=== PATIENT | female | born 1945 | race Caucasian/White ===

== ENCOUNTER 2024-07-22 13:52 | Outpatient (REF) | payer MEDICARE, SELFPAY ==
--- NOTE | ~2024-07-22 | XR_ITS ---
EXAMINATION: XR CHEST CLINICAL INFORMATION: J06.9 - Acute upper respiratory infection, unspecified COMPARISON: None available. TECHNIQUE: 2 views of the chest were obtained. FINDINGS: Meniscal shaped opacities in the lower hemithoraces. Decreased AP diameter of the thorax and hyperinflated lungs. Pulmonary reticular pattern. Patchy opacities in the right lung. Cardiomediastinal silhouette mildly prominent. Calcified plaque thoracic aortic arch. Multilevel thoracic spondylosis. Osteopenia versus osteoporosis. Mild S-shaped curvature of the thoracic spine. 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 Superimposed acute small airway inflammatory process cannot be excluded. Follow-up until resolution. Electronically signed by: Damon Truong MD 07/22/2024 02:44 PM EDT
--- OUTSIDE RECORDS SUMMARY | 2024-07-22 14:46 | XMS_ITS | Encounter Summary ---
Author Organization [facility] Address [address] [place] [address] Care Team Providers Care Improvement Leader Name Role Phone Marcus Rodriguez MD Primary Care Provider [phone] Reason for Visit * Reason Comments URI Sx x 4 days Encounter Details Date Type Department Care Team (Late st Contact Info) Description 07/19/2024 1:30 PM EDT Office Visit Adult Medicine [address] [phone] Vilma Arreaga PA [address] [place] [phone] Viral upper respiratory tract infection (Primary Dx) [...] Care Everywhere. * URI (Upper Respiratory Infection) (Turkish) documented in this encounter Ordered Prescriptions Prescription [...] Noted Chronic diastolic CHF (congestive heart failure) ([facility] [place]24, [facility] V28) 05/04/2024 Coronary artery disease involving nisqually coronary artery of nisqually heart without angina pectoris 05/04/2024 Acquired hypothyroidism 05/04/2024 Complex partial seizures ([facility] V24, [facility] V28) 05/04/2024 Bilateral malignant neoplasm of breast in female ([facility]24, [facility] V28) 05/04/2024 Past Surgical History: Procedure Laterality [...] for cough medication and decongestant sent to [facility]. - Suggested allergy medication to dry [...] problems arise. Orders Placed This Encounter Procedures [id number], RSV, Influenza A and B qualitative RT-PCR [...] 11:30 AM EDT Office Visit Adult Medicine [address] [address] Marcus Rodriguez MD [address] [place] [phone] documented as of this encounter Procedures Procedure Name Priority Date/Time Associated Diagnosis Comments [id number], RSV, FLU A AND B QUALITATIVE RT-PCR, LOCAL REFERENCE LAB Routine 07/19/2024 1:40 PM EDT Viral upper respiratory tract infection documented in this encounter Results * [id number], RSV, Influenza A and B qualitative RT-PCR (07/19/2024 1:40 PM EDT) SARS COV-2 Not Detected Not Detected LAB MOLECULAR DIAGNOSTICS METHOD 07/19/2024 11:28 PM EDT [facility] Comment: Disclaimer: The manner in which this information is used to guide patient care is the responsibility of the healthcare provider. Testing was performed using the [employer] m SARS-CoV-2 test. This test has [...] for Healthcare Providers can be found at: https://www.fda.gov/media/130841/download Fact sheet for Patients can be found at: https://www.fda.gov/media/854895/download Influenza A PCR Not Detected Not Detected LAB MOLECULAR DIAGNOSTICS METHOD 07/19/2024 11:28 PM EDT [facility] Influenza B PCR Not Detected Not Detected LAB MOLECULAR DIAGNOSTICS METHOD 07/19/2024 11:28 PM EDT [facility] RSV PCR Not Detected Not Detected LAB MOLECULAR DIAGNOSTICS METHOD 07/19/2024 11:28 PM EDT [facility] Swab Nasopharyngeal structure / Unknown Non-blood Collection / Unknown 07/19/2024 1:40 PM EDT 07/19/2024 1:40 PM EDT Vilma MATHEW LAB MICROBIOLOGY - GENER AL ORDERABLES Final Result [facility] [address] [place] [address], documented in this encounter Visit Diagnoses Diagnosis Viral upper respiratory tract infection- Primary Acute upper respiratory infections of unspecified site documented in this encounter Additional Health Concerns Infection Onset Date Last Indicated Resolved Time Respiratory Rule-Out 07/19/2024 07/19/2024 025 11:28 PM EDT COVID-19 Rule-Out 07/19/2024 07/19/2024 07/19/2024 11:28 PM EDT documented as of this encounter Care Teams Improvement Leader Relationship Specialty Start Date End Date Marcus Rodriguez MD [address] [place] [phone] PCP - General 11/02/23 documented as of this encounter
--- OUTSIDE RECORDS SUMMARY | 2024-07-22 14:46 | XMS_ITS | Encounter Summary ---
Author Organization [facility] Address [address] [place] [address] Care Team Providers Care Database Specialist Name Role Phone Marcus Rodriguez MD Primary Care Provider [phone] Reason for Visit * Reason Onset Date Comments Cough 07/22/2024 call back 07/22/2024 Encounter Details Date Type Department Care Team (Late st Contact Info) Description 07/22/2024 Telephone Adult Medicine [facility] [address] [place] [phone] Marcus Rodriguez MD [address] [place] [address] Cough; call back Social History Tobacco Use [...] traveled recently to another state outside of [place], [place], [place], [place], [place], [place], [place]? no o If yes, did you quarantine [...] of accident/Injury: No If yes, gather 3rd constitution party insurance information Third Libertarian Information: not applicable PCP: Marcus Rodriguez MD Payor: MEDICARE / Plan: MEDICARE PART A & B / Product Type: Medicare / documented in this encounter Plan of Treatment Upcoming Encounters Date Type Department Care Team (Late st Contact Info) Description 10/31/2024 11:30 AM EDT Office Visit Adult Medicine [address] [phone] Marcus Rodriguez MD [address] [place] [phone] documented as of this encounter Visit Diagnoses Not on filedocumented in this encounter Care Teams Database Specialist Relationship Specialty Start Date End Date Marcus Rodriguez MD [address] [place] [phone] PCP - General 11/02/23 documented as of this encounter
--- OUTSIDE RECORDS SUMMARY | 2024-07-22 14:46 | XMS_ITS | Clinical Summary ---
Author Organization [facility] [address] [place] [address] Address [address] [place] [address] Phone Care Team Providers Care Warping Machine Operator Name Role Phone Marcus Rodriguez MD Primary Care Provider [phone] Allergies Active Allergy Reactions Criticality Noted Date [...] Chronic diastolic CHF (conge stive heart failure) ([facility] V24, [facility] V28) 05/04/2024 Coronary artery disease invo lving [place] coronary artery of [place] heart without angina pectoris 05/04/2024 Acquired hypothyroidism 05/04/2024 Complex partial seizures ([facility] V24, [facility] V 28) 05/04/2024 Bilateral malignant neoplasm of breast in female ([facility] V24, [facility] V28) 05/04/2024 Encounters Date Type Department Care Team Description 07/22/2024 Telephone Adult [address] [phone] Marcus Rodriguez MD Cough; call back 07/19/2024 1:30 PM EDT Office Visit [address] [phone] Vilma Arreaga PA Viral upper respiratory tract infection (Primary Dx) 07/19/2024 Telephone Adult Medicine [address] [phone] Cathryn Loco RN 05/12/2024 Telephone Adult [address] [phone] Marcus Rodriguez MD prior auth for meds 05/05/2024 1:45 PM EST Office Visit Adult Medicine [address] [phone] Marcus Rodriguez MD Coronary artery disease involving [place] coronary artery of [place] heart without angina pectoris (Primary Dx); Chronic diastolic CHF (congestive heart failure) ([facility] V24, [facility] V28); Acquired hypothyroidism; Complex partial seizures ([facility] V24, [facility] V28); Bilateral malignant neoplasm of breast in female, unspecified estrogen receptor status, unspecified site of breast ([facility] V24, [facility] V28); Gastroesophageal reflux disease without esophagitis; Prediabetes; Vitamin D deficiency disease; Anxiety disorder, unspecified type; Encounter for osteoporosis screening in asymptomatic postmenopausal patient; Malnutrition, unspecified type ([facility] V24) from Last 3 Months Immunizations [...] nodule DX:Thyroid nodul e Complex partial seizure ([facility] V24, [facility] V28) DX:Complex partial seizure ( HCC) MS (multiple sclerosis) ([facility] V24, [facility] V28) DX:MS (multiple sclerosis) ( [facility]) Chronic fatigue DX:Chronic fatig ue CHF (congestive heart failur e) ([facility] V24, [facility] V28) DX:CHF (congestive heart nolan lure) ([facility]) Breast cancer ([facility] V24, [facility] V28) DX:Breast cancer (HCC) Family History [...] 11:30 AM EDT Office Visit Adult Medicine [address] [phone] Marcus Rodriguez MD [address] [place] [address] Health Maintenance Due Date Last Done Comments [...] Procedure Name Priority Date/Time Associated Diagnosis Comments [id number], RSV, FLU A AND B QUALITATIVE RT-PCR, LOCAL REFERENCE LAB Routine 07/19/2024 1:40 PM EDT Viral upper respiratory tract infection from Last 3 Months Results * [id number], RSV, Influenza A and B qualitative RT-PCR (07/19/2024 1:40 PM EDT) SARS COV-2 Not Detected Not Detected LAB MOLECULAR DIAGNOSTICS METHOD 07/19/2024 11:28 PM EDT [facility] Comment: Disclaimer: The manner in which this information is used to guide patient care is the responsibility of the healthcare provider. Testing was performed using the [employer] Alinity m SARS-CoV-2 test. This test has [...] for Healthcare Providers can be found at: https://www.fda.gov/media/975848/download Fact sheet for Patients can be found at: https://www.fda.gov/media/358251/download Influenza A PCR Not Detected Not Detected LAB MOLECULAR DIAGNOSTICS METHOD 07/19/2024 11:28 PM EDT [facility] Influenza B PCR Not Detected Not Detected LAB MOLECULAR DIAGNOSTICS METHOD 07/19/2024 11:28 PM EDT [facility] RSV PCR Not Detected Not Detected LAB MOLECULAR DIAGNOSTICS METHOD 07/19/2024 11:28 PM [facility] Swab Nasopharyngeal structure / Unknown Non-blood Collection / Unknown 07/19/2024 1:40 PM EDT 07/19/2024 1:40 PM EDT us Vilma Bondsng Babatunde Arreaga PA LAB MICROBIOLOGY - GENER AL ORDERABLES Final Result [facility] [address] [place] [address], [place] [phone] from Last [address] [id number] MEDICARE COMMERCIAL GENERIC Care Teams Warping Machine Operator Relationship Specialty Start Date End Date Marcus Rodriguez MD [address] [place] [address] PCP - General 11/02/23
--- OUTSIDE RECORDS SUMMARY | 2024-07-22 14:46 | XMS_ITS | Encounter Summary ---
Author Organization [facility] Address [address] [place] [address] Care Team Providers Care Metal Polisher Name Role Phone Marcus Rodriguez MD Primary Care Provider [phone] Encounter Details Date Type Department Care Team (Late st Contact Info) Description 07/19/2024 Telephone Adult Medicine [address] [phone] Cathryn Loco, DARELL Social History Tobacco Use [...] 11:30 AM EDT Office Visit Adult Medicine [address] [phone] Marcus Rodriguez MD [address] [place] [address] documented as of this encounter Visit Diagnoses Not on filedocumented in this encounter Care Teams Metal Polisher Relationship Specialty Start Date End Date Marcus Rodriguez MD [address] [place] [address] PCP - General 11/02/23 documented as of this encounter
[2024-07-23 11:10] LABS: Influenza A PCR NEGATIVE (Negative); Influenza B PCR NEGATIVE (Negative); Resp Syncy Virus RNA Qual PCR NEGATIVE (Negative); SARS COV2 PCR INHOUSE NEGATIVE (Negative)
== END 2024-07-22 13:53 | disposition home or self-care (01) ==
LOC: HO.HMGCX 13:52
PROVIDERS: PCP Internal Medicine; Visit Provider Nurse Practitioner Family
DX: J06.9 Acute upper respiratory infection, unspecified (principal); R05.2 Subacute cough
CPT/HCPCS: 0241U; 71046; 99202

== ENCOUNTER 2024-07-22 13:52 | Outpatient (AMB) | payer MEDICARE, SELFPAY ==
--- NOTE | 2024-07-22 13:54 | AM.OFFWIN_ITS ---
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 Is last menstrual period known: No Post menopausal: No Patient : No Allergies lisinopril Allergy (Severe, Verified 07/22/24 14:01) Swelling clindamycin Allergy (Intermediate, Verified 07/22/24 14:01) Hives erythromycin base [From Erythrocin] Allergy (Intermediate, Verified 07/22/24 14:01) Dizziness Penicillins Allergy (Intermediate, Verified 07/22/24 14:01) Unknown Sulfa (Sulfonamide Antibiotics) Allergy (Intermediate, Verified 07/22/24 14:01) Unknown iodine dye Allergy (Severe, Uncoded 07/22/24 14:01) Weakness cephrozil Allergy (Intermediate, Uncoded 07/22/24 14:01) Hives Do you need a note to return to daycare/school/sports/work: No HPI HPI Comments History of Present Illness Details 78 y/o Female patient who presents to [facility] walk in clinic with c/o URI symptoms since Thursday. Pt c/o Subjective Fevers, Productive Cough, chest congestion, Body aches and Chills. Pt was seen and evaluated at a Local Urgent Care Thursday for similar symptoms. She tested Negative SARs. She was instructed to take OTC medications. Pt also c/o Tachycardia since yesterday, but denies CP or SOB. Pt has h/o Heart Failure, HTN and follows with Cardiology every 6 months. [facility] Medical History (Updated 07/22/24 @ 14:29 by Tiffanie Ford NP) Cough Acute respiratory disease Social History Patient Tobacco Use Status: Never used Tobacco Patient : No Review of Systems Const All systems reviewed & are unremarkable except as noted in HPI and below Physical Exam Vital Signs: Last Vital Signs Temp 99.2 F 07/22/24 14:06 Pulse 148 H 07/22/24 14:06 Resp 16 07/22/24 14:06 BP 148/78 H 07/22/24 14:06 Pulse Ox 97 07/22/24 14:06 Oxygen Delivery Method Room Air 07/22/24 14:06 BMI result Body Mass Index 17.6 Const General: no acute distress Nutritional Appearance: thin Orientation/consciousness: patient oriented x3 HEENT Head: Yes normocephalic Ears: external ears normal and TM abnormal with fluid behind the TM bilateral Face and sinus: Yes sinuses nontender Mouth: moist mucous membranes Throat: Yes uvula midline Resp Effort & Inspection: normal respiratory effort, able to speak in complete sentences and Actively coughing Auscultation: clear to auscultation bilaterally, no crackles, no rales, no rhonchi and no wheezes Cardio Rate: tachycardic Heart sounds: S1 normal heart sound present and S2 normal heart sound present Neuro General: patient oriented x3, gait normal and moves all extremities Psych Speech and movement: Normal speech and movement present Assessment & Plan Assessment & Plan (1) Acute respiratory disease: Code(s): J06.9 - Acute upper respiratory infection, unspecified Plan: Ordered SARs Ordered Chest Xray Ordered Prednisone for 5 days. Acetaminophen for pain/fever relief. Advised to go to ED if she develops CP, SOB, Wheezing, Dizziness, body weakness and chest tightness. (2) Cough: Code(s): R05.9 - Cough, unspecified Qualifiers: Cough type: subacute Qualified Code(s): R05.2 - Subacute cough Plan: Ordered SARs Ordered Chest Xray Ordered Prednisone for 5 days. Acetaminophen for pain/fever relief. Advised to go to ED if she develops CP, SOB, Wheezing, Dizziness, body weakness and chest tightness. Orders: Orders XR chest 2V Today J06.9 - Acute upper respiratory infection, unspecified, R05.9 - Cough, unspecified Medications: New prednisone 20 mg PO DAILY 5 days 5 tabs 0RF J06.9 - Acute upper respiratory infection, unspecified, R05.9 - Cough, unspecified benzonatate 200 mg (2 x 100 mg) PO BID 60 caps 0RF R05.9 - Cough, unspecified Coding Level of Care Code New Pt Level 4 (71257) Diagnoses Acute respiratory disease J06.9 Subacute cough R05.2 Cough type: subacute Time Spent (min) 20
[2024-07-22 14:06] VITALS: BP 148/78; PULSE 148; RESP 16; TEMP 37.3; O2SAT 97; BMI 17.6
--- OUTSIDE RECORDS SUMMARY | 2024-07-22 14:13 | XMS_ITS | Clinical Summary ---
Author Organization [facility] [address] [place] [address] [address] [place] [address] Phone Care Team Providers Care Manager Photography Name Role Phone Marcus Rodriguez MD Primary Care Provider [phone] Allergies Active Allergy Reactions Criticality Noted Date Comments Clindamycin 11/26/2023 Erythromycin 11/26/2023 Lisinopril 11/26/2023 Penicillin G 11/26/2023 Sulfa (Sulfonamide Antibiotics) 11/05 Medications mag/aluminum/sod bicarb/alginc (GAVISCON ORAL) Take by mouth at bedtime as needed. Active aspirin 81 mg EC tablet Take 1 tablet (81 mg total) by mouth 1 (one) time each day. Active biotin 1 mg tablet Take by mouth 1 (one) time each day. Active cholecalciferol (VITAMIN D-3) 50 mcg (2,000 unit) capsule Take by mouth 1 (one) time each day. Active ubidecarenone (COQ-10 ORAL) Take by mouth. Active CRANBERRY ORAL Take by mouth 1 (one) time each day. Active DOCUSATE SODIUM ORAL Take by mouth. Active famotidine (PEPCID) 20 mg tablet Take 1 Tablet by mouth at bedtime. Active hydrALAZINE (APRESOLINE) 10 mg tablet Take 1 Tablet by mouth 3 times daily. Active ISOSORBIDE DINITRATE ORAL Take 15 mg by mouth daily. Active levETIRAcetam (KEPPRA) 750 mg tablet Take 1 tablet (750 mg total) by mouth 2 (two) times a day. Active levothyroxine (SYNTHROID, LEVOTHROID) 125 mcg tablet Take 1 Tablet by mouth four times a week. Active metoprolol succinate (TOPROL-XL) 25 mg 24 hr tablet Take 0.5 Tablets by mouth daily. Active multivit-min/jewels chico fumarate (MULTI VITAMIN ORAL) Take by mouth 1 (one) time each day. Active Lactobacillus acidophilus (PROBIOTIC ORAL) Take by mouth. Active rosuvastatin (CRESTOR) 5 mg tablet Take 1 tablet (5 mg total) by mouth 1 (one) time each day. Active vitamin E, dl, acetate, 90 mg (200 unit) capsule Take 1 capsule (200 Units total) by mouth 1 (one) time each day. Active LORazepam (ATIVAN) 0.5 mg tabletIndication s:Anxiety disorder, unspecified type Take 1 tablet (0.5 mg total) by mouth at bedtime as needed for anxiety. Max Daily Amount: 0.5 mg 20 tablet 05/05/2024 Active guaiFENesin (ROBITUSSIN) 100 mg/5 mL liquid Take 10 mL (200 mg total) by mouth 3 (three) times a day if needed for cough for up to 10 days. 120 mL 07/19/2024 07/30/19 25 Active Active Problems Problem Noted Date Diagnosed Date Chronic diastolic CHF (conge stive heart failure) ([facility] V24, [facility] V28) 05/04/2024 Coronary artery disease invo lving tunica-biloxi coronary artery of tun[place]-bil[place] heart without angina pectoris 05/04/2024 Acquired hypothyroidism 05/04/2024 Complex partial seizures ([facility] V24, [facility] V 28) 05/04/2024 Bilateral malignant neoplasm of breast in female ([facility] V24, [facility] V28) 05/04/2024 Encounters Date Type Department Care Team Description 07/22/2024 Telephone Adult [address] [phone] Marcus Rodriguez MD Cough; call back 07/19/2024 1:30 PM EDT Office Visit [address] [phone] Vilma Arreaga PA Viral upper respiratory tract infection (Primary Dx) 07/19/2024 Telephone Adult Medicine [address] [phone] Cathryn Loco RN 05/12/2024 Telephone Adult [address] [phone] Marcus Rodriguez MD prior auth for meds 05/05/2024 1:45 PM EST Office Visit Adult Medicine [address] [phone] Marcus Rodriguez MD Coronary artery disease involving tunica-biloxi coronary artery of tun[place]-bil[place] heart without angina pectoris (Primary Dx); Chronic diastolic CHF (congestive heart failure) ([facility] V24, [facility] V28); Acquired hypothyroidism; Complex partial seizures ([facility] V24, [facility] V28); Bilateral malignant neoplasm of breast in female, unspecified estrogen receptor status, unspecified site of breast ([facility] V24, [facility] V28); Gastroesophageal reflux disease without esophagitis; Prediabetes; Vitamin D deficiency disease; Anxiety disorder, unspecified type; Encounter for osteoporosis screening in asymptomatic postmenopausal patient; Malnutrition, unspecified type ([facility] V24) from Last 3 Months Immunizations Name Administration Dates Next Due Influenza trivalent, 0.5mL ( Fluad) 65yo and older 01/21/2024,12/25/2022,01/08/2022 Moderna Covid-19 Bivalent, O riginal + Ba.1 (Non-US Tradename Spikevax Bivalent) 01/08/2022 Pneumococcal polysaccharide 23 valent (Pneumovax 23) 2yo and older 12/17/2020 RSV, bivalent, protein subun it RSVpreF, 0.5mL, Preservative Free (Arexvy) 60yo and older 03/15/2024 Td Tetanus diptheria (Tdvax) 7yo and older 11/26 Tdap Tetanus diptheria acell ular pertussis (Boostrix; Adacel) 7yo and older 11/26/2023 Zoster recombinant (Shingrix ) 19yo and older 09/17/2020,01/25/2020 Surgical History Surgery Date Site/Laterality Comments OTHER SURGICAL HISTORY PROCEDURE: HISTORY OTHER; COMMENT: bilateral mastectomies OTHER SURGICAL HISTORY PROCEDURE: HISTORY OTHER; COMMENT: Tonsillectomy OTHER SURGICAL HISTORY PROCEDURE: HISTORY OTHER; COMMENT: Appendectomy Medical History Medical History Date Comments CAD (coronary artery disease) DX :CAD (coronary artery disease) Hypothyroidism DX:Hypothyroidis m Thyroid nodule DX:Thyroid nodul e Complex partial seizure ([facility] V24, [facility] V28) DX:Complex partial seizure ( HCC) MS (multiple sclerosis) ([facility] V24, [facility] V28) DX:MS (multiple sclerosis) ( [facility]) Chronic fatigue DX:Chronic fatig ue CHF (congestive heart failur e) ([facility] V24, [facility] V28) DX:CHF (congestive heart nolan lure) ([facility]) Breast cancer ([facility] V24, [facility] V28) DX:Breast cancer (HCC) Family History Medical History Relation Name Comments Breast cancer Aunt Breast cancer Mother Breast cancer Sister Diabetes Sister Heart failure Sister Relation Name Status Comments Aunt Alive Mother Sister Social History Tobacco Use Types Packs/Day Years Used Date Smoking Tobacco: Never Smokeless Tobacco: Never Tobacco Cessation:Counseling Given: Not Answered Alcohol Use Standard Drinks/Week Comments Never 0 (1 standard drink = 0.6 oz pur e alcohol) Comments Unknown Sex and Gender Information Value Date Recorded Sex Assigned at Not on file Legal Sex Female 11:39 AM EDT Gender Identity Not on file Sexual Orientation Not on file Obstetrics History Last Filed Vital Signs Vital Sign Reading Time Taken Comments Blood Pressure 143/78 07/19/2024 1:24 PM EDT Pulse 89 07/19/2024 1:24 PM EDT Temperature 36.8 ??C (98.3 ??F) 07/19/2024 1:24 PM ED T Respiratory Rate 14 07/19/2024 1:24 PM EDT Oxygen Saturation - - Inhaled Oxygen Concentration - - Weight 49.4 kg (109 lb) 07/19/2024 1:24 PM EDT Height 167.6 cm (5' 6 ) 07/19/2024 1:24 PM EDT Body Mass Index 17.59 07/19/2024 1:24 PM EDT Plan of Treatment Upcoming Encounters Date Type Department Care Team (Late st Contact Info) Description 10/31/2024 11:30 AM EDT Office Visit Adult Medicine [address] [phone] Marcus Rodriguez MD [address] [place] [phone] Health Maintenance Due Date Last Done Comments Cholesterol Screening (Lipid Panel) 01/17/2024 Depression Screening 01/17/2024 Falls Risk Assessment 01/17/2024 Hepatitis C Screening 01/17/2024 Hypertension/CHF/CAD Annual BMP Blood Test 01/17/2024 Medicare Annual Wellness Visit 01/17/2024 Osteoporosis Screening (Bone Density Screening) 01/17/2024 Social Influencers of Health Screening 01/17/2024 COVID-19 Vaccine (8 - Moderna risk 2023- season) 2024 01/21/2024, 01/22/2023, 01/08/2022, Additional history exists DTaP,Tdap,and Td Vaccines (3 - Td or Tdap) 11/26/2033 11/27/2023, 11/26/2023 Zoster Vaccines Completed 09/17/2020, 01/25/2020 Pneumococcal Vaccine: 50+ Years Completed 12/17/2020, 12/08/2014 Influenza Vaccine Completed 01/21/2024, , 01/08/2022, Additional history exists RSV Immunization Adult Patients Completed 03/15/2024 HIB Vaccines Aged Out No longer eligi ble based on patient's age to complete this topic HPV Vaccines Aged Out No longer eligi ble based on patient's age to complete this topic Hepatitis A Vaccines Aged Out No long er eligible based on patient's age to complete this topic Hepatitis B Vaccines Aged Out No long er eligible based on patient's age to complete this topic IPV Vaccines Aged Out No longer eligi ble based on patient's age to complete this topic MMR Vaccines Aged Out No longer eligi ble based on patient's age to complete this topic Meningococcal ACWY Vaccine Aged Out N o longer eligible based on patient's age to complete this topic Meningococcal B Vaccine Aged Out No l onger eligible based on patient's age to complete this topic RSV Immunization Patients Under 20 months Aged Out No longer eligible based on patient's age to complete this topic Varicella Vaccines Aged Out No longer eligible based on patient's age to complete this topic Procedures Procedure Name Priority Date/Time Associated Diagnosis Comments [id number], RSV, FLU A AND B QUALITATIVE RT-PCR, LOCAL REFERENCE LAB Routine 07/19/2024 1:40 PM EDT Viral upper respiratory tract infection from Last 3 Months Results * [id number], RSV, Influenza A and B qualitative RT-PCR (07/19/2024 1:40 PM EDT) SARS COV-2 Not Detected Not Detected LAB MOLECULAR DIAGNOSTICS METHOD 07/19/2024 11:28 PM EDT [facility] Comment: Disclaimer: The manner in which this information is used to guide patient care is the responsibility of the healthcare provider. Testing was performed using the [employer] m SARS-CoV-2 test. This test has been authorized by FDA under an Emergency Use Authorization (EUA). This test is only authorized for the duration of time the declaration that circumstances exist justifying the authorization of the emergency use of in vitro diagnostic tests for detection of SARS-CoV-2 virus and/or diagnosis of COVID-19 infection under section 564(b)(1) of the Act, 21 U.S.C. 360bbb- 3(b)(1), unless the authorization is terminated or revoked sooner. Fact sheet for Healthcare Providers can be found at: https://www.fda.gov/media/392148/download Fact sheet for Patients can be found at: https://www.fda.gov/media/194678/download Influenza A PCR Not Detected Not Detected LAB MOLECULAR DIAGNOSTICS METHOD 07/19/2024 11:28 PM EDT [facility] Influenza B PCR Not Detected Not Detected LAB MOLECULAR DIAGNOSTICS METHOD 07/19/2024 11:28 PM EDT [facility] RSV PCR Not Detected Not Detected LAB MOLECULAR DIAGNOSTICS METHOD 07/19/2024 11:28 PM [facility] Swab Nasopharyngeal structure / Unknown Non-blood Collection / Unknown 07/19/2024 1:40 PM EDT 07/19/2024 1:40 PM EDT us Vilma Bondsng Babatunde Arreaga PA LAB MICROBIOLOGY - GENER AL ORDERABLES Final Result [facility] [address] [place] [address], [place] [phone] from Last [address] [id number] MEDICARE COMMERCIAL GENERIC Care Teams Manager Photography Relationship Specialty Start Date End Date Marcus Rodriguez MD [address] [place] [id number] PCP - General 11/02/23
--- OUTSIDE RECORDS SUMMARY | 2024-07-22 14:13 | XMS_ITS | Encounter Summary ---
Author Organization [facility] Address [address] [place] [address] Care Team Providers Care Security Flex Utility Officer Name Role Phone Marcus Rodriguez MD Primary Care Provider [phone] Reason for Visit * Reason Comments URI Sx x 4 days Encounter Details Date Type Department Care Team (Late st Contact Info) Description 07/19/2024 1:30 PM EDT Office Visit Adult Medicine [address] [address] Vilma Arreaga PA [address] [place] [address] Viral upper respiratory tract infection (Primary Dx) Social History Tobacco Use Types Packs/Day Years [...] on file Sexual Orientation Not on file documented as of this encounter Last Filed Vital Signs Vital Sign Reading Time Taken Comments Blood Pressure 143/78 07/19/2024 1:24 PM EDT Pulse 89 07/19/2024 1:24 PM EDT Temperature 36.8 ??C (98.3 ??F) 07/19/2024 1:24 PM E DT Respiratory Rate 14 07/19/2024 1:24 PM EDT Oxygen Saturation - - Inhaled Oxygen Concentration - - Weight 49.4 kg (109 lb) 07/19/2024 1:24 PM EDT Height 167.6 cm (5' 6 ) 07/19/2024 1:24 PM EDT Body Mass Index 17.59 07/19/2024 1:24 PM EDT documented in this encounter Patient Instructions * Attachments The following attachments cannot be sent through Care Everywhere. * URI (Upper Respiratory Infection) (Spanish) documented in this encounter Ordered Prescriptions Prescription Sig Dispense Quantity Refills Last Filled Start Date End Date guaiFENesin (ROBITUSSIN) 100 mg/5 mL liquid Take 10 mL (200 mg total) by mouth 3 (three) times a day if needed for cough for up to 10 days. 120 mL 07/19/2024 07/29/2024 documented in this encounter Progress Notes * PRIYANKA Garcia - 07/19/2024 1:30 PM EDT CHIEF COMPLAINT: URI (Sx x 4 days) IDENTIFIER: Nimisha Frazier is a 78 y.o. old female. Past medical history: nonobstructive CAD, diastolic CHF, hypothyroidism, chronic fatigue, complex partial seizures, breast cancer, bilateral mastectomy, status post chemotherapy in 1992, right axillary lipoma/normal mammogram in 2022, prediabetes, GERD, malnutrition and insomnia History of Present Illness The patient presents for evaluation of cough and congestion. Cough and Congestion - Mild cough and nasal congestion for 4 days, worsening over the past 3 days - Symptoms include body aches, skin sensitivity, and fatigue - Low-grade fever (99.4??F) noted at symptom onset, elevated from her baseline of 97??F - Non-productive cough triggered by conversation or laughter - No recent travel or exposure to sick individuals - No medications taken for symptoms, and no regular allergy medication use - Attempted COVID-19 test at home was unsuccessful due to kit - Stopped wearing a mask last week - No facial pain or rashes - History of asthma, but no recent wheezing - Lives alone, her recently . - Despite lack of appetite, continues to eat SOCIAL HISTORY Does not smoke. Lives alone. Health maintenance reviewed. She had normal colonoscopy in 2019. She has bilateral mastectomy and today breast exam is completed and no palpable breast masses and no axillary lymphadenopathy. She is up-to-date for vaccinations. I will order bone density scan. ROS: See HPI PAST MEDICAL HISTORY: Patient Active Problem List Diagnosis Date Noted Chronic diastolic CHF (congestive heart failure) [place] [place], [facility] V28) 05/04/2024 Coronary artery disease involving ione coronary artery of ione heart without angina pectoris 05/04/2024 Acquired hypothyroidism 05/04/2024 Complex partial seizures ([facility] V24, [facility] V28) 05/04/2024 Bilateral malignant neoplasm of breast in female ([facility] [place], [facility] V28) 05/04/2024 Past Surgical History: Procedure Laterality Date OTHER SURGICAL HISTORY PROCEDURE: HISTORY OTHER; COMMENT: bilateral mastectomies OTHER SURGICAL HISTORY PROCEDURE: HISTORY OTHER; COMMENT: Tonsillectomy OTHER SURGICAL HISTORY PROCEDURE: HISTORY OTHER; COMMENT: Appendectomy SOCIAL HISTORY: Social History Tobacco Use Smoking status: Never Smokeless tobacco: Never Substance Use Topics Alcohol use: Never FAMILY HISTORY: Family History Problem Relation Name Age of Onset Breast cancer Mother Breast cancer Sister Diabetes Sister Heart failure Sister Breast cancer Aunt Family Status Relation Name Status Mother (Not Specified) Sister (Not Specified) Aunt Alive No partnership data on file MEDICATIONS DISCONTINUED/REORDERED: There are no discontinued medications. ACTIVE MEDICATIONS: Outpatient Medications Marked as Taking for the 07/19/24 encounter (Office Visit) with PRIYANKA Garcia Medication Sig Dispense Refill aspirin 81 mg EC tablet Take 1 tablet (81 mg total) by mouth 1 (one) time each day. biotin 1 mg tablet Take by mouth 1 (one) time each day. cholecalciferol (VITAMIN D-3) 50 mcg (2,000 unit) capsule Take by mouth 1 (one) time each day. CRANBERRY ORAL Take by mouth 1 (one) time each day. DOCUSATE SODIUM ORAL Take by mouth. famotidine (PEPCID) 20 mg tablet Take 1 Tablet by mouth at bedtime. hydrALAZINE (APRESOLINE) 10 mg tablet Take 1 Tablet by mouth 3 times daily. ISOSORBIDE DINITRATE ORAL Take 15 mg by mouth daily. Lactobacillus acidophilus (PROBIOTIC ORAL) Take by mouth. levETIRAcetam (KEPPRA) 750 mg tablet Take 1 tablet (750 mg total) by mouth 2 (two) times a day. levothyroxine (SYNTHROID, LEVOTHROID) 125 mcg tablet Take 1 Tablet by mouth four times a week. LORazepam (ATIVAN) 0.5 mg tablet Take 1 tablet (0.5 mg total) by mouth at bedtime as needed for anxiety. Max Daily Amount: 0.5 mg 20 tablet 0 mag/aluminum/sod bicarb/alginc (GAVISCON ORAL) Take by mouth at bedtime as needed. metoprolol succinate (TOPROL-XL) 25 mg 24 hr tablet Take 0.5 Tablets by mouth daily. multivit-min/ferrous fumarate (MULTI VITAMIN ORAL) Take by mouth 1 (one) time each day. rosuvastatin (CRESTOR) 5 mg tablet Take 1 tablet (5 mg total) by mouth 1 (one) time each day. ubidecarenone (COQ-10 ORAL) Take by mouth. vitamin E, dl, acetate, 90 mg (200 unit) capsule Take 1 capsule (200 Units total) by mouth 1 (one) time each day. ALLERGIES: Allergies Allergen Reactions Clindamycin Erythromycin Lisinopril Penicillin G Sulfa (Sulfonamide Antibiotics) PHYSICAL EXAM: Vitals: 07/19/24 1324 BP: (!) 143/78 Pulse: 89 Resp: 14 Temp: 36.8 ??C (98.3 ??F) Physical Exam APPEARANCE: Alert and in no acute distress. EYES: PERRLA, conjunctiva and sclera normal. EARS: External ears normal. Canals clear. TMs normal. NOSE/SINUS: fernando normal. Septum midline. Mucosa normal. No drainage or sinus tenderness. MOUTH/THROAT: Moist mucous membranes, no erythema, no exudate. NECK: neck supple, no adenopathy, thyroid symmetric and of normal size. HEART: RRR with normal S1 and S2, no murmurs, no gallops. CHEST: non-tender to palpation, no crepitation. LUNG: Clear to auscultation, no wheezing, rales, or rhonchi. Able to talk in full complete sentences. LABS: No results found for this or any previous visit. IMPRESSION: 1. Viral upper respiratory tract infection Assessment & Plan 1. Suspect viral URI - Symptoms suggest viral etiology, onset 4 days ago, severe for 3 days, body aches, and low-grade fever (99.4??F). - Swab test for COVID-19, RSV, and influenza conducted - Advised hydration, rest, and daily electrolytes. - Recommended meal replacements if unable to eat full meals with protein shakes/ensure, etc. - Prescription for cough medication and decongestant sent to [facility]. - Suggested allergy medication to dry up mucus and improve symptoms. - Advised to continue to wear mask. - Contact office if no improvement in 7-10 days or sooner if symptoms worsen. I have obtained verbal consent from Nimisha Frazier prior to the recording. I have advised Nimisha Frazier that she may refuse the recording and require the recording to be turned off at any time during this encounter. All questions and concerns were addressed. Nimisha Frazier verbalizes understanding and agrees with this treatment plan. Patient was reminded to call or return to the office if any new or existing problems arise. Orders Placed This Encounter Procedures [id number], RSV, Influenza A and B qualitative RT-PCR None PRIYANKA Garcia on 07/19/2024 at 1:49 PM EDT Today's documentation was made using voice recognition software.This note may contain grammatical errors secondary to this software. * Naya Oro MA - 07/19/2024 1:30 PM EDT Patient is aware of anna message and plan documented in this encounter Plan of Treatment Upcoming Encounters Date Type Department Care Team (Late st Contact Info) Description 10/31/2024 11:30 AM EDT Office Visit Adult Medicine [address] [phone] Marcus Rodriguez MD [address] [place] [phone] documented as of this encounter Procedures Procedure Name Priority Date/Time Associated Diagnosis Comments [id number], RSV, FLU A AND B QUALITATIVE RT-PCR, LOCAL REFERENCE LAB Routine 07/19/2024 1:40 PM EDT Viral upper respiratory tract infection documented in this encounter Results * [id number], RSV, Influenza A and B qualitative RT-PCR (07/19/2024 1:40 PM EDT) SARS COV-2 Not Detected Not Detected LAB MOLECULAR DIAGNOSTICS METHOD 07/19/2024 11:28 PM EDT [facility] Comment: Disclaimer: The manner in which this information is used to guide patient care is the responsibility of the healthcare provider. Testing was performed using the [employer] m SARS-CoV-2 test. This test has [...] for Healthcare Providers can be found at: https://www.fda.gov/media/060872/download Fact sheet for Patients can be found at: https://www.fda.gov/media/000551/download Influenza A PCR Not Detected Not Detected LAB MOLECULAR DIAGNOSTICS METHOD 07/19/2024 11:28 PM EDT [facility] Influenza B PCR Not Detected Not Detected LAB MOLECULAR DIAGNOSTICS METHOD 07/19/2024 11:28 PM EDT [facility] RSV PCR Not Detected Not Detected LAB MOLECULAR DIAGNOSTICS METHOD 07/19/2024 11:28 PM EDT [facility] Swab Nasopharyngeal structure / Unknown Non-blood Collection / Unknown 07/19/2024 1:40 PM EDT 07/19/2024 1:40 PM EDT Vilma MATEHW LAB MICROBIOLOGY - GENER AL ORDERABLES Final Result [facility] [address] [place] [address], documented in this encounter Visit Diagnoses Diagnosis Viral upper respiratory tract infection- Primary Acute upper respiratory infections of unspecified site documented in this encounter Additional Health Concerns Infection Onset Date Last Indicated Resolved Time Respiratory Rule-Out 07/19/2024 07/19/2024 025 11:28 PM EDT COVID-19 Rule-Out 07/19/2024 07/19/2024 07/19/2024 11:28 PM EDT documented as of this encounter Care Teams Security Flex Utility Officer Relationship Specialty Start Date End Date Marcus Rodriguez MD [address] [place] [phone] PCP - General 11/02/23 documented as of this encounter
--- OUTSIDE RECORDS SUMMARY | 2024-07-22 14:13 | XMS_ITS | Encounter Summary ---
Author Organization [facility] Address [address] [place] [address] Care Team Providers Care Roll Clamp Operator Name Role Phone Marcus Rodriguez MD Primary Care Provider [phone] Reason for Visit * Reason Onset Date Comments Cough 07/22/2024 call back 07/22/2024 Encounter Details Date Type Department Care Team (Late st Contact Info) Description 07/22/2024 Telephone Adult Medicine [facility] [address] [place] [phone] Marcus Rodriguez MD [address] [place] [address] Cough; call back Social History Tobacco Use Types Packs/Day Years Used Date Smoking Tobacco: Never Smokeless Tobacco: Never Alcohol Use Standard Drinks/Week Comments Never 0 (1 standard drink = 0.6 oz pur e alcohol) Comments Unknown Sex and Gender Information Value Date Recorded Sex Assigned at Not on file Legal Sex Female 11:39 AM EDT Gender Identity Not on file Sexual Orientation Not on file documented as of this encounter Progress Notes * Cathryn Loco RN - 07/22/2024 12:54 PM EDT Pt was seen 3 days ago with viral URI, temp 99.4 non producive cough and testing negative , now cough is worse and pt has had increased HR and feels worse than she did 3 days ago temp is still 99.7 Due to HR pt needs to be seen now she will go to the ed or [facility] * Estelita Jewell - 07/22/2024 12:44 PM EDT Patient call requires triage: Symptoms patient is presenting: cough, patient was seen on 07/19 with Arreaga. She is not feeling better, coughing, her pulse today was 177, now it is 124. Her BP was 118/83. She says her covid, flu and RSV tests were negative. Had some yellow phlegm she coughed up last night. Patient wants to speak toa nurse, says she can't continue feeling this way. How long has patient had these symptoms?: 07/16 For ALL patients calling to schedule any appointment (routine, sick visit, follow up, consult, etc.) in the outpatient setting please ask the following questions: Do you have fever of higher than 101, sore throat with difficulty swallowing or severe shortness ofbreath? no If YES to any of these above symptoms, send a message to triage and do not book. Red dot. If no, an audio or video visit should be booked. Have you had close contact with someone with Coronavirus in the last 14 days? no Have you traveled abroad? no Have you traveled recently to another state outside of [place], [place], [place], [place], [place], [place], [place]? no o If yes, did you quarantine for 14 days or have a negative covid test? no If yes to any of the above, patient is not to be scheduled in office until after 14 day quarantine or negative covid test. If pain or injury related was it due to an accident at work or from a motor vehicle accident? If yes, date of accident/Injury: No If yes, gather 3rd democrat insurance information Third Libertarian Information: not applicable PCP: Marcus Rodriguez MD Payor: MEDICARE / Plan: MEDICARE PART A & B / Product Type: Medicare / documented in this encounter Plan of Treatment Upcoming Encounters Date Type Department Care Team (Late st Contact Info) Description 10/31/2024 11:30 AM EDT Office Visit Adult Medicine [address] [address] Marcus Rodriguez MD [address] [place] [phone] documented as of this encounter Visit Diagnoses Not on filedocumented in this encounter Care Teams Roll Clamp Operator Relationship Specialty Start Date End Date Marcus Rodriguez MD [address] [place] [phone] PCP - General 11/02/23 documented as of this encounter
--- OUTSIDE RECORDS SUMMARY | 2024-07-22 14:13 | XMS_ITS | Encounter Summary ---
Author Organization [facility] Address [address] [place] [address] Care Team Providers Care Special Education Associate Name Role Phone Marcus Rodriguez MD Primary Care Provider [phone] Encounter Details Date Type Department Care Team (Late st Contact Info) Description 07/19/2024 Telephone Adult Medicine [address] [phone] Cathryn Loco, DARELL Social History Tobacco Use Types Packs/Day Years [...] Progress Notes * Cathryn Loco RN - 07/19/2024 11:03 AM EDT Pt has had flu symptoms for 4 Days, Pt has not tested for Covid or flu C/o chest wall pain with deep breath and cough, denies SOB at rest ( has no COPD/ asthma or any respiratory condition ) , able to speak in full sentences and has no audible wheezing, cough is non productive for Sputum, denies fever (98.2) able to take PO with no appetite denies N/V/D, pt is also C/O cough, congestion body aches, headache,ear pain,sinus pain,fatigue , sore throat Advised home care following the Cough/ breathing problems Protocol. RN reinforced telephone consultation and advice. Reviewed with the patient the signs and symptoms to watch for that would require immediate attention. If symptoms change, worsen or increase in intensity, to call back immediately. Appointment today at 1:30 documented in this encounter Plan of Treatment Upcoming Encounters Date Type Department Care Team (Late st Contact Info) Description 10/31/2024 11:30 AM EDT Office Visit Adult Medicine [address] [phone] Marcus Rodriguez MD [address] [place] [phone] documented as of this encounter Visit Diagnoses Not on filedocumented in this encounter Care Teams Special Education Associate Relationship Specialty Start Date End Date Marcus Rodriguez MD [address] [place] [phone] PCP - General 11/02/23 documented as of this encounter
== END 2024-07-22 14:37 | disposition home or self-care (01) ==
PROVIDERS: Visit Provider Nurse Practitioner Family
DX: J06.9 Acute upper respiratory infection, unspecified (principal); R05.2 Subacute cough

== ENCOUNTER → 2024-07-22 14:32 | Outpatient (BNV) | payer MEDICARE, SELFPAY | PROVIDERS: PCP Internal Medicine; Visit Provider Radiology Diagnostic Radiology | DX: J84.9 Interstitial pulmonary disease, unspecified (principal); J44.9 Chronic obstructive pulmonary disease, unspecified; J90 Pleural effusion, not elsewhere classified | CPT/HCPCS: 71046 ==

== ENCOUNTER 2024-07-22 16:54 | Outpatient (REF) | payer MEDICARE, SELFPAY ==
--- OUTSIDE RECORDS SUMMARY | 2024-07-22 16:57 | XMS_ITS | Encounter Summary ---
Author Organization [employer] Address [address] [place] [address] Care Team Providers Care Oracle Pl Sql Developer Name Role Phone Marcus Rodriguez MD Primary Care Provider [phone] Encounter Details Date Type Department Care Team (Late st Contact Info) Description 07/19/2024 Telephone Adult Medicine [address] [phone] Cathryn Loco, DARELL Social History Tobacco Use [...] 11:30 AM EDT Office Visit Adult Medicine [address] [phone] Marcus Rodriguez MD [address] [place] [address] documented as of this encounter Visit Diagnoses Not on filedocumented in this encounter Care Teams Oracle Pl Sql Developer Relationship Specialty Start Date End Date Marcus Rodriguez MD [address] [place] [address] PCP - General 11/02/23 documented as of this encounter
--- OUTSIDE RECORDS SUMMARY | 2024-07-22 16:57 | XMS_ITS | Encounter Summary ---
Author Organization [employer] Address [address] [place] [address] Care Team Providers Care Welfare Eligibility Interviewer Name Role Phone Marcus Rodriguez MD Primary Care Provider [phone] Reason for Visit * Reason Comments URI Sx x 4 days Encounter Details Date Type Department Care Team (Late st Contact Info) Description 07/19/2024 1:30 PM EDT Office Visit Adult Medicine [address] [phone] Vilma Arreaga PA [address] [place] [phone] Viral upper respiratory tract infection (Primary Dx) [...] Care Everywhere. * URI (Upper Respiratory Infection) (Kazakh) documented in this encounter Ordered Prescriptions Prescription [...] Noted Chronic diastolic CHF (congestive heart failure) ([facility] V24, [facility] V28) 05/04/2024 Coronary artery disease involving [place] coronary artery of [place] heart without angina pectoris 05/04/2024 Acquired hypothyroidism 05/04/2024 Complex partial seizures ([facility] V24, [facility] V28) 05/04/2024 Bilateral malignant neoplasm of breast in female ([facility] V24, [facility] V28) 05/04/2024 Past Surgical History: Procedure Laterality [...] for cough medication and decongestant sent to [facility]. - Suggested allergy medication to dry up [...] problems arise. Orders Placed This Encounter Procedures [id number], RSV, Influenza A and B qualitative RT-PCR [...] 11:30 AM EDT Office Visit Adult Medicine [address] [phone] Marcus Rodriguez MD [address] [place] [address] documented as of this encounter Procedures Procedure Name Priority Date/Time Associated Diagnosis Comments [id number], RSV, FLU A AND B QUALITATIVE RT-PCR, LOCAL REFERENCE LAB Routine 07/19/2024 1:40 PM EDT Viral upper respiratory tract infection documented in this encounter Results * [id number], RSV, Influenza A and B qualitative RT-PCR (07/19/2024 1:40 PM EDT) SARS COV-2 Not Detected Not Detected LAB MOLECULAR DIAGNOSTICS METHOD 07/19/2024 11:28 PM EDT [facility] Comment: Disclaimer: The manner in which this information is used to guide patient care is the responsibility of the healthcare provider. Testing was performed using the [employer] Alinity m SARS-CoV-2 test. This test has [...] for Healthcare Providers can be found at: https://www.fda.gov/media/635532/download Fact sheet for Patients can be found at: https://www.fda.gov/media/106204/download Influenza A PCR Not Detected Not Detected LAB MOLECULAR DIAGNOSTICS METHOD 07/19/2024 11:28 PM EDT [facility] Influenza B PCR Not Detected Not Detected LAB MOLECULAR DIAGNOSTICS METHOD 07/19/2024 11:28 PM EDT [facility] RSV PCR Not Detected Not Detected LAB MOLECULAR DIAGNOSTICS METHOD 07/19/2024 11:28 PM EDT [facility] Swab Nasopharyngeal structure / Unknown Non-blood Collection / Unknown 07/19/2024 1:40 PM EDT 07/19/2024 1:40 PM EDT Vilma MATHEW LAB MICROBIOLOGY - GENER AL ORDERABLES Final Result [facility] [address] [place] [address], documented in this encounter Visit Diagnoses Diagnosis Viral upper respiratory tract infection- Primary Acute upper respiratory infections of unspecified site documented in this encounter Additional Health Concerns Infection Onset Date Last Indicated Resolved Time Respiratory Rule-Out 07/19/2024 07/19/2024 025 11:28 PM EDT COVID-19 Rule-Out 07/19/2024 07/19/2024 07/19/2024 11:28 PM EDT documented as of this encounter Care Teams Welfare Eligibility Interviewer Relationship Specialty Start Date End Date Marcus Rodriguez MD [address] [place] [address] PCP - General 11/02/23 documented as of this encounter
--- OUTSIDE RECORDS SUMMARY | 2024-07-22 16:57 | XMS_ITS | Clinical Summary ---
Author Organization [facility] [address] [place] [address] Address [address] [place] [address] Phone Care Team Providers Care Functional Architect Name Role Phone Marcus Rodriguez MD Primary Care Provider [phone] Allergies Active Allergy Reactions Criticality Noted Date [...] Chronic diastolic CHF (conge stive heart failure) ([facility] V24, [facility] V28) 05/04/2024 Coronary artery disease invo lving [place] coronary artery of [place] heart without angina pectoris 05/04/2024 Acquired hypothyroidism 05/04/2024 Complex partial seizures ([facility] V24, [facility] V 28) 05/04/2024 Bilateral malignant neoplasm of breast in female ([facility] V24, [facility] V28) 05/04/2024 Encounters Date Type Department Care Team Description 07/22/2024 Telephone Adult [address] [phone] Marcus Rodriguez MD Cough; call back 07/19/2024 1:30 PM EDT Office Visit [address] [phone] Vilma Arreaga PA Viral upper respiratory tract infection (Primary Dx) 07/19/2024 Telephone Adult Medicine [address] [phone] Cathryn Loco RN 05/12/2024 Telephone Adult [address] [phone] Marcus Rodriguez MD prior auth for meds 05/05/2024 1:45 PM EST Office Visit Adult Medicine [address] [phone] Marcus Rodriguez MD Coronary artery disease involving [place] coronary artery of [place] heart without angina pectoris (Primary Dx); Chronic diastolic CHF (congestive heart failure) ([facility] V24, [facility] V28); Acquired hypothyroidism; Complex partial seizures ([facility] V24, [facility] V28); Bilateral malignant neoplasm of breast in female, unspecified estrogen receptor status, unspecified site of breast ([facility] V24, [facility] V28); Gastroesophageal reflux disease without esophagitis; Prediabetes; Vitamin D deficiency disease; Anxiety disorder, unspecified type; Encounter for osteoporosis screening in asymptomatic postmenopausal patient; Malnutrition, unspecified type ([facility] V24) from Last 3 Months Immunizations Name [...] nodule DX:Thyroid nodul e Complex partial seizure ([facility] V24, [facility] V28) DX:Complex partial seizure ( HCC) MS (multiple sclerosis) ([facility] V24, [facility] V28) DX:MS (multiple sclerosis) ( [facility]) Chronic fatigue DX:Chronic fatig ue CHF (congestive heart failur e) ([facility] V24, [facility] V28) DX:CHF (congestive heart nolan lure) ([facility]) Breast cancer ([facility] V24, [facility] V28) DX:Breast cancer (HCC) Family History Medical [...] 11:30 AM EDT Office Visit Adult Medicine [address] [phone] Marcus Rodriguez MD [address] [place] [phone] Health Maintenance Due Date Last Done Comments [...] Procedure Name Priority Date/Time Associated Diagnosis Comments [id number], RSV, FLU A AND B QUALITATIVE RT-PCR, LOCAL REFERENCE LAB Routine 07/19/2024 1:40 PM EDT Viral upper respiratory tract infection from Last 3 Months Results * [id number], RSV, Influenza A and B qualitative RT-PCR (07/19/2024 1:40 PM EDT) SARS COV-2 Not Detected Not Detected LAB MOLECULAR DIAGNOSTICS METHOD 07/19/2024 11:28 PM EDT [facility] Comment: Disclaimer: The manner in which this information is used to guide patient care is the responsibility of the healthcare provider. Testing was performed using the [employer] Alinity m SARS-CoV-2 test. This test has [...] for Healthcare Providers can be found at: https://www.fda.gov/media/384144/download Fact sheet for Patients can be found at: https://www.fda.gov/media/721659/download Influenza A PCR Not Detected Not Detected LAB MOLECULAR DIAGNOSTICS METHOD 07/19/2024 11:28 PM EDT [facility] Influenza B PCR Not Detected Not Detected LAB MOLECULAR DIAGNOSTICS METHOD 07/19/2024 11:28 PM EDT [facility] RSV PCR Not Detected Not Detected LAB MOLECULAR DIAGNOSTICS METHOD 07/19/2024 11:28 PM [facility] Swab Nasopharyngeal structure / Unknown Non-blood Collection / Unknown 07/19/2024 1:40 PM EDT 07/19/2024 1:40 PM EDT us Vilma Bondsng Babatunde Arreaga PA LAB MICROBIOLOGY - GENER AL ORDERABLES Final Result [facility] [address] [place] [address], [place] [phone] from Last [address] [place] [id number] MEDICARE COMMERCIAL GENERIC Care Teams Functional Architect Relationship Specialty Start Date End Date Marcus Rodriguez MD [address] [place] [phone] PCP - General 11/02/23
--- OUTSIDE RECORDS SUMMARY | 2024-07-22 16:57 | XMS_ITS | Encounter Summary ---
Author Organization [employer] Address [address] [place] [address] Care Team Providers Care Magazine Supervisor Name Role Phone Marcus Rodriguez MD Primary Care Provider [phone] Reason for Visit * Reason Onset Date Comments Cough 07/22/2024 call back 07/22/2024 Encounter Details Date Type Department Care Team (Late st Contact Info) Description 07/22/2024 Telephone Adult Medicine [facility] [address] [place] [phone] Marcus Rodriguez MD [address] [place] [address] Cough; call back Social History Tobacco Use [...] traveled recently to another state outside of [place], [place], [place], [place], [place], [place], [place]? no o If yes, did you quarantine [...] of accident/Injury: No If yes, gather 3rd libertarian insurance information Third Libertarian Information: not applicable PCP: Marcus Rodriguez MD Payor: MEDICARE / Plan: MEDICARE PART A & B / Product Type: Medicare / documented in this encounter Plan of Treatment Upcoming Encounters Date Type Department Care Team (Late st Contact Info) Description 10/31/2024 11:30 AM EDT Office Visit Adult Medicine [address] [phone] Marcus Rodriguez MD [address] [place] [address] documented as of this encounter Visit Diagnoses Not on filedocumented in this encounter Care Teams Magazine Supervisor Relationship Specialty Start Date End Date Marcus Rodriguez MD [address] [place] [address] PCP - General 11/02/23 documented as of this encounter
== END 2024-07-22 16:55 | disposition home or self-care (01) ==
LOC: HO.LAB 16:54
PROVIDERS: Visit Provider Nurse Practitioner Family
DX: Z13.89 Encounter for screening for other disorder (principal)

== ENCOUNTER 2024-12-23 13:38 | Outpatient (AMB) | payer MEDICARE, OTHER, SELFPAY ==
--- OUTSIDE RECORDS SUMMARY | 2024-12-23 13:50 | XMS_ITS | Encounter Summary ---
Author Organization [employer] Address [address] [place] [address] Care Team Providers Care Classifier Tender Name Role Phone Marcus Rodriguez MD Primary Care Provider [phone] Reason for Visit * Reason Onset Date Comments VNA 12/23/2024 Encounter Details Date Type Department Care Team ([facility] st Contact Info) Description 12/23/2024 Telephone Adult Medicine [address] [place] [phone] Purnima Gomez MA Social History Tobacco Use Types Packs/Day Years Used Date Smoking Tobacco: Never Smokeless Tobacco: Never Alcohol Use Standard Drinks/Week Comments Never 0 (1 standard drink = 0.6 oz pur e alcohol) Comments No Sex and Gender Information Value Date Recorded Sex Assigned at Not on file Legal Sex Female 11:39 AM EDT Gender Identity Not on file Sexual Orientation Not on file documented as of this encounter Progress Notes * Purnima Gomez MA - 12/23/2024 12:13 PM EDT [facility] CALL Which [facility] office is calling? [facility] / Full name of caller: MARIA SIABEL [place] The caller is A nurse Is the caller at the patients home?: no Reason for call: PATIENT IS COMPLAING OF CONSTIPATION/ PAIN AND DIFFICULTY MOVING HER BOWELS AND ISREQUESTING A RECOMMENDATION FOR A STOOL SOFTENER.PATIENT ALSO HAS REDNESS ON HER LEFT FOOT PT WAS EDUCATED ON SIGNS AND SYMPTOMS OF INFECTION AND WHEN TO SEEK MEDICAL ATTENTION. Does caller need an urgent call back? no Was CONTACT Telephone # obtained above?: yes Fax #: documented in this encounter Plan of Treatment Upcoming Encounters Date Type Department Care Team (Late st Contact Info) Description 01/10/2025 10:20 AM EDT Consult Gastroenterology - [place] [address] [facility] [address] [place] [phone] Rei Strauss MD [address] [place] [phone] 01/13/2025 2:00 PM EDT Office Visit Adult Medicine [address] [phone] Marcus Rodriguez MD [address] [place] [address] documented as of this encounter Visit Diagnoses Not on filedocumented in this encounter Care Teams Classifier Tender Relationship Specialty Start Date End Date Marcus Rodriguez MD [address] [place] [address] PCP - General 11/02/23 documented as of this encounter
--- OUTSIDE RECORDS SUMMARY | 2024-12-23 13:50 | XMS_ITS | Clinical Summary ---
Author Organization [facility] [address] [place] [address] [place], [place] [address] [address] Phone Care Team Providers Care Manager Roofing Name Role Phone Marcus Rodriguez MD Primary Care Provider [phone] Allergies Active Allergy Reactions Criticality Noted Date [...] DOCUSATE SODIUM ORAL Take by mouth. Active ISOSORBIDE DINITRATE ORAL Take 15 mg by mouth daily. Active multivit-min/jewels chico fumarate (MULTI VITAMIN ORAL) Take by mouth 1 (one) time each day. Active Lactobacillus acidophilus (PROBIOTIC ORAL) Take by mouth. Active vitamin E, dl, acetate, 90 mg (200 unit) capsule Take 1 capsule (200 Units total) by mouth 1 (one) time each day. Active levETIRAcetam (KEPPRA) 750 mg tabletIndication s:Acute otitis externa of both ears, unspecified type Take 1 tablet (750 mg total) by mouth 2 (two) times a day. 90 each 1 09/22/19 25 Active levothyroxine (SYNTHROID, LEVOTHROID) 125 mcg tabletIndication s:Acute otitis externa of both ears, unspecified type Take 1 Tablet by mouth four times a week. 90 each 09/22/19 25 Active hydrALAZINE (APRESOLINE) 10 mg tabletIndication s:Acute otitis externa of both ears, unspecified type TAKE 1 TABLET(10 MG) BY MOUTH THREE TIMES DAILY 270 tablet 1 09/23/19 25 Active metoprolol succinate (TOPROL-XL) 25 mg 24 hr tablet Take 1.5 tablets (37.5 mg total) by mouth 1 (one) time each day. Do not crush or chew. Active omeprazole OTC (PriLOSEC OTC) 20 mg EC tablet Take 1 tablet (20 mg total) by mouth 1 (one) time each day. Do not crush, chew, or split. 90 tablet 1 10/12/19 25 Active benzonatate (TESSALON) 100 mg capsule Take 1 capsule (100 mg total) by mouth 3 (three) times a day if needed for cough. Do not crush or chew. 30 capsule 10/12/19 25 Active LORazepam (ATIVAN) 0.5 mg tabletIndication s:Anxiety disorder, unspecified type Take 1 tablet (0.5 mg total) by mouth at bedtime as needed for anxiety. Max Daily Amount: 0.5 mg 20 tablet 10/12/19 25 Active albuterol HFA (PROAIR HFA ; PROVENTIL HFA ; VENTOLIN HFA) 90 mcg/actuation inhalerIndicatio ns:Mild intermittent asthma with acute exacerbation INHALE 2 PUFFS BY MOUTH EVERY 6 HOURS NEEDED FOR WHEEZING OR SHORTNESS OF BREATH 6.7 g 1 12/02/19 25 Active famotidine (PEPCID) 20 mg tabletIndication s:Acute otitis externa of both ears, unspecified type TAKE 1 TABLET(20 MG) BY MOUTH AT BEDTIME 90 tablet 1 12/21/19 25 Active rosuvastatin (CRESTOR) 5 mg tabletIndication s:Acute otitis externa of both ears, unspecified type TAKE 1 TABLET(5 MG) BY MOUTH 1 TIME EACH DAY 90 tablet 1 12/22/19 Active famotidine (PEPCID) 20 mg tabletIndication s:Acute otitis externa of both ears, unspecified type Take 1 tablet (20 mg total) by mouth at bedtime. at bedtime. 90 each 09/22/19 25 025 Discontinued rosuvastatin (CRESTOR) 5 mg tabletIndication s:Acute otitis externa of both ears, unspecified type Take 1 tablet (5 mg total) by mouth 1 (one) time each day. 90 each 09/22/19 25 025 Discontinued albuterol HFA (Ventolin HFA) 90 mcg/actuation inhalerIndicatio ns:Mild intermittent asthma with acute exacerbation Inhale 2 puffs by mouth every 6 (six) hours if needed for wheezing or shortness of breath. 8 g 1 10/12/19 25 025 Discontinued Active Problems Problem Noted Date Diagnosed Date Chronic diastolic CHF (conge stive heart failure) ([facility] V24, [facility] V28) 05/04/2024 Coronary artery disease invo lving [place] coronary artery of [place] heart without angina pectoris 05/04/2024 Acquired hypothyroidism 05/04/2024 Complex partial seizures ([facility] V24, [facility] V 28) 05/04/2024 Bilateral malignant neoplasm of breast in female ([facility] V24, [facility] V28) 05/04/2024 Encounters Date Type Department Care Team Description 12/23/2024 Telephone Adult Medicine [address] [phone] Purnima Gomez [place] 10/11/2024 1:00 PM EDT Office Visit Adult Medicine [address] [phone] Marcus Rodriguez MD Mild intermittent asthma with acute exacerbation (Primary Dx); Gastroesophageal reflux disease with esophagitis without hemorrhage; Anxiety disorder, unspecified type 10/11/2024 Telephone Adult Medicine [address] [phone] Marcus Rodriguez MD from Last 3 Months Immunizations Name Administration [...] nodule DX:Thyroid nodul e Complex partial seizure ([facility] V24, [facility] V28) DX:Complex partial seizure ( HCC) MS (multiple sclerosis) DX:MS (m ultiple sclerosis) ([facility]) Chronic fatigue DX:Chronic fatig ue CHF (congestive heart failur e) ([facility] V24, [facility] V28) DX:CHF (congestive heart nolan lure) ([facility]) Breast cancer ([facility] V24, [facility] V28) DX:Breast cancer ([facility]) Family History Medical History Relation Name Comments [...] Sign Reading Time Taken Comments Blood Pressure 128/80 10/11/2024 1:05 PM EDT Pulse 94 10/11/2024 1:05 PM EDT Temperature 36.8 C (98.3 F) 10/11/2024 1:05 PM EDT Respiratory Rate 20 10/11/2024 1:05 PM EDT Oxygen Saturation 94% 10/11/2024 1:05 PM EDT Inhaled Oxygen Concentration - - Weight 49.9 kg (110 lb) 10/11/2024 1:05 PM EDT Height 168.9 cm (5' 6.5 ) 10/11/2024 1:05 PM EDT Body Mass Index 17.49 10/11/2024 1:05 PM EDT Plan of Treatment Upcoming Encounters Date Type Department Care Team (Late st Contact Info) Description 01/10/2025 10:20 AM EDT Consult Gastroenterology - [place] [address] [facility] [address] [place] [id number] Rei Strauss MD [address] [place] [address] 01/13/2025 2:00 PM EDT Office Visit Adult Medicine [address] [phone] Marcus Rodriguez MD [address] [place] [address] Health Maintenance Due Date Last Done Comments Falls Risk Assessment 01/17/2024 Hepatitis C Screening 01/17/2024 Medicare Annual Wellness Visit 01/17/2024 Osteoporosis Screening (Bone Density Screening) 01/17/2024 Social Influencers of Health Screening 01/17/2024 Depression Screening 04/06/2024 COVID-19 Vaccine (8 - Moderna risk season) 2024 01/21/2024, 01/22/2023, 01/08/2022, Additional history exists Influenza Vaccine (#1) 2024 , 12/25/2022, 01/08/2022, Additional history exists Hypertension/CHF/CAD Annual BMP Blood Test 09/30/2025 09/30/2024 Cholesterol Screening (Lipid Panel) 09/30/2029 09/30/2024 DTaP,Tdap,and Td Vaccines (3 - Td or Tdap) 11/26/2033 11/27/2023, 11/26/2023 Zoster Vaccines Completed 09/17/2020, 01/25/2020 Pneumococcal Vaccine: 50+ Years Completed 12/17/2020, 12/08/2014 RSV Immunization Adult Patients Completed 03/15/2024 HIB [...] Procedure Name Priority Date/Time Associated Diagnosis Comments CBC WITH AUTO DIFFERENTIAL Routine 09/30/2024 8:48 AM EDT Coronary artery disease involving [place] coronary artery of [place] heart without angina pectoris Chronic diastolic CHF (congestive heart failure) (CMS/HCC V24, CMS/HCC V28) Acquired hypothyroidism Complex partial seizures (CMS/HCC V24, CMS/HCC V28) Bilateral malignant neoplasm of breast in female, unspecified estrogen receptor status, unspecified site of breast (CMS/HCC V24, CMS/HCC V28) Gastroesophageal reflux disease without esophagitis Prediabetes Vitamin D deficiency disease HEMOGLOBIN A1C Routine 09/30/2024 8:48 AM EDT Coronary artery disease involving [place] coronary artery of [place] heart without angina pectoris Chronic diastolic CHF (congestive heart failure) (CMS/HCC V24, CMS/HCC V28) Acquired hypothyroidism Complex partial seizures (CMS/HCC V24, CMS/HCC V28) Bilateral malignant neoplasm of breast in female, unspecified estrogen receptor status, unspecified site of breast (CMS/HCC V24, CMS/HCC V28) Gastroesophageal reflux disease without esophagitis Prediabetes Vitamin D deficiency disease CBC AND DIFFERENTIAL Routine 09/30/2024 8:48 AM EDT Coronary artery disease involving [place] coronary artery of [place] heart without angina pectoris Chronic diastolic CHF (congestive heart failure) (CMS/HCC V24, CMS/HCC V28) Acquired hypothyroidism Complex partial seizures (CMS/HCC V24, CMS/HCC V28) Bilateral malignant neoplasm of breast in female, unspecified estrogen receptor status, unspecified site of breast (CMS/HCC V24, CMS/HCC V28) Gastroesophageal reflux disease without esophagitis Prediabetes Vitamin D deficiency disease COMPREHENSIVE METABOLIC PANEL Routine 09/30/2024 8:48 AM EDT Coronary artery disease involving [place] coronary artery of [place] heart without angina pectoris Chronic diastolic CHF (congestive heart failure) (CMS/HCC V24, CMS/HCC V28) Acquired hypothyroidism Complex partial seizures (CMS/HCC V24, CMS/HCC V28) Bilateral malignant neoplasm of breast in female, unspecified estrogen receptor status, unspecified site of breast (CMS/HCC V24, CMS/HCC V28) Gastroesophageal reflux disease without esophagitis Prediabetes Vitamin D deficiency disease LIPID PANEL WITH REFLEX TO DIRECT LDL Routine 09/30/2024 8:48 AM EDT Coronary artery disease involving [place] coronary artery of [place] heart without angina pectoris Chronic diastolic CHF (congestive heart failure) (CMS/HCC V24, CMS/HCC V28) Acquired hypothyroidism Complex partial seizures (CMS/HCC V24, CMS/HCC V28) Bilateral malignant neoplasm of breast in female, unspecified estrogen receptor status, unspecified site of breast (CMS/HCC V24, CMS/HCC V28) Gastroesophageal reflux disease without esophagitis Prediabetes Vitamin D deficiency disease THYROID STIMULATING HORMONE WITH REFLEX TO FREE T4 AND FREE T3 Routine 09/30/2024 8:48 AM EDT Coronary artery disease involving [place] coronary artery of [place] heart without angina pectoris Chronic diastolic CHF (congestive heart failure) (CMS/HCC V24, CMS/HCC V28) Acquired hypothyroidism Complex partial seizures (CMS/HCC V24, CMS/HCC V28) Bilateral malignant neoplasm of breast in female, unspecified estrogen receptor status, unspecified site of breast (CMS/HCC V24, CMS/HCC V28) Gastroesophageal reflux disease without esophagitis Prediabetes Vitamin D deficiency disease VITAMIN D 25 HYDROXY Routine 09/30/2024 8:48 AM EDT Coronary artery disease involving [place] coronary artery of [place] heart without angina pectoris Chronic diastolic CHF (congestive heart failure) (CMS/HCC V24, CMS/HCC V28) Acquired hypothyroidism Complex partial seizures (CMS/HCC V24, CMS/HCC V28) Bilateral malignant neoplasm of breast in female, unspecified estrogen receptor status, unspecified site of breast (CMS/HCC V24, CMS/HCC V28) Gastroesophageal reflux disease without esophagitis Prediabetes Vitamin D deficiency disease VITAMIN B12 Routine 09/30/2024 8:48 AM EDT Coronary artery disease involving [place] coronary artery of [place] heart without angina pectoris Chronic diastolic CHF (congestive heart failure) (CMS/HCC V24, CMS/HCC V28) Acquired hypothyroidism Complex partial seizures (CMS/HCC V24, CMS/HCC V28) Bilateral malignant neoplasm of breast in female, unspecified estrogen receptor status, unspecified site of breast (CMS/HCC V24, CMS/HCC V28) Gastroesophageal reflux disease without esophagitis Prediabetes Vitamin D deficiency disease MAGNESIUM Routine 09/30/2024 8:48 AM EDT Coronary artery disease involving [place] coronary artery of [place] heart without angina pectoris Chronic diastolic CHF (congestive heart failure) (CMS/HCC V24, CMS/HCC V28) Acquired hypothyroidism Complex partial seizures (CMS/HCC V24, CMS/HCC V28) Bilateral malignant neoplasm of breast in female, unspecified estrogen receptor status, unspecified site of breast (CMS/HCC V24, CMS/HCC V28) Gastroesophageal reflux disease without esophagitis Prediabetes Vitamin D deficiency disease from Last 3 Months Results * Thyroid stimulating hormone with reflex to free t4 and free t3 (09/30/2024 8:48 AM EDT) TSH 0.79 0.40 - 4.00 mcIU/mL LAB CHEMISTRY METHOD 09/30/2024 2:03 PM EDT [facility] Blood Venous blood specimen / Unknown Venipuncture / Unknown 09/30/2024 8:48 AM EDT 09/30/2024 8:48 AM EDT us Marcus Rodriguez MD LAB BLOOD ORDERABLES Final Result [facility] [address] [place] [address], [place] [phone] * Lipid panel with reflex to direct LDL (09/30/2024 8:48 AM EDT) Cholesterol 145 0 - 200 mg/dL LAB CHEMISTRY METHOD 09/30/2024 12:39 PM EDT [facility] Triglycerides 66 0 - 150 mg/dL LAB CHEMISTRY METHOD 09/30/2024 12:39 PM T [facility] HDL 70 >=40 mg/dL LAB CHEMISTRY METHOD 09/30/2024 12:39 PM T [facility] LDL Calculated 62 0 - 100 mg/dL LAB CHEMISTRY METHOD 09/30/2024 12:39 PM T [facility] VLDL Cholesterol Ky 13.2 mg/dL LAB CHEMISTRY METHOD 09/30/2024 12:39 PM T [facility] Non HDL Chol. (LDL+VLDL) 75 <145 mg/dL LAB CHEMISTRY METHOD 09/30/2024 12:39 PM [facility] Chol/HDL Ratio 2.1 0.0 - 4.4 LAB CHEMISTRY METHOD 09/30/2024 12:39 PM [facility] Blood Venous blood specimen / Unknown Venipuncture / Unknown 09/30/2024 8:48 AM EDT 09/30/2024 8:48 AM EDT us Marcus Rodriguez MD LAB BLOOD ORDERABLES Final Result [facility] [address] [place] [address], [place] [phone] * (ABNORMAL) CBC auto differential (09/30/2024 8:48 AM EDT) WBC 5.2 4.8 - 10.8 K/mcL LAB HEMETOLOGY METHOD 09/30/2024 12:15 PM EDT [facility] RBC 4.80 3.80 - 4.80 M/mcL LAB HEMETOLOGY METHOD 09/30/2024 12:15 PM EDT [facility] Hemoglobin 14.2 11.5 - 16.0 g/dL LAB HEMETOLOGY METHOD 09/30/2024 12:15 PM EDT [facility] Hematocrit 44.6 35.0 - 47.0 % LAB HEMETOLOGY METHOD 09/30/2024 12:15 PM EDT [facility] MCV 92.3 79.0 - 98.0 FL LAB HEMETOLOGY METHOD 09/30/2024 12:15 PM EDT [facility] MCH 29.4 27.0 - 32.0 pcg LAB HEMETOLOGY METHOD 09/30/2024 12:15 PM EDT [facility] MCHC 31.8(L) 32.0 - 37.0 g/dL LAB HEMETOLOGY METHOD 09/30/2024 12:15 PM EDT [facility] RDW 14.3 11.0 - 15.0 % LAB HEMETOLOGY METHOD 09/30/2024 12:15 PM EDT [facility] Platelets 218 130 - 400 K/mcL LAB HEMETOLOGY METHOD 09/30/2024 12:15 PM EDT [facility] MPV 11.7(H) 7.0 - 11.0 FL LAB HEMETOLOGY METHOD 09/30/2024 12:15 PM EDT [facility] NRBC 0.0 <1.0 % LAB HEMETOLOGY METHOD 09/30/2024 12:15 PM EDT [facility] NRBC Absolute 0.00 <0.10 K/mcL LAB HEMETOLOGY METHOD 09/30/2024 12:15 PM EDT [facility] Neutrophils Relative 54.2 % LAB HEMETOLOGY METHOD 09/30/2024 12:15 PM EDT [facility] Lymphocytes Relative 27.9 % LAB HEMETOLOGY METHOD 09/30/2024 12:15 PM EDT [facility] Monocytes Relative 14.2 % LAB HEMETOLOGY METHOD 09/30/2024 12:15 PM EDT [facility] Eosinophils Relative 2.5 % LAB HEMETOLOGY METHOD 09/30[facility]2024 12:[facility] Basophils Relative 1.0 % LAB HEMETOLOGY METHOD 09/30/2024 12:15 PM [facility] Immature Granulocytes Relative 0.2 % LAB HEMETOLOGY METHOD 09/30/2024 12:15 PM [facility] Neutrophils Absolute 2.82 1.50 - 7.00 K/mcL LAB HEMETOLOGY METHOD 09/30/2024 12:15 PM EDT [facility] Lymphocytes Absolute 1.45 1.00 - 5.00 K/mcL LAB HEMETOLOGY METHOD 09/30/2024 12:15 PM EDT [facility] Monocytes Absolute 0.74 0.20 - 1.00 K/mcL LAB HEMETOLOGY METHOD 09/30/2024 12:15 PM EDT [facility] Eosinophils Absolute 0.13 0.00 - 0.50 K/mcL LAB HEMETOLOGY METHOD 09/30/2024 12:15 PM EDT [facility] Basophils Absolute 0.05 0.00 - 0.20 K/[facility] LAB HEMETOLOGY METHOD 09/30/2024 12:15 PM EDT [facility] Immature Granulocytes Absolute 0.01 0.00 - 0.03 K/[facility] LAB HEMETOLOGY METHOD 09/30/2024 12:15 PM EDT [facility] Blood Venous blood specimen / Unknown Venipuncture / Unknown 09/30/2024 8:48 AM EDT 09/30/2024 8:48 AM EDT Marcus Rodriguez MD LAB BLOOD ORDERABLES Final Result Performing Organization Address City/[facility]/ZIP Co de Phone Number [facility] [address] [place] [address], [place] [phone] * Vitamin D 25 hydroxy (09/30/2024 8:48 AM EDT) Vit D, 25-Hydroxy 54.7 30.0 - 80.0 ng/mL LAB CHEMISTRY METHOD 09/30/2024 2:03 PM EDT [facility] Blood Venous blood specimen / Unknown Venipuncture / Unknown 09/30/2024 8:48 AM EDT 09/30/2024 8:48 AM EDT Marcus Rodriguez MD LAB BLOOD ORDERABLES Final Result [facility] [address] [place] [address], [place] [phone] * Magnesium (09/30/2024 8:48 AM EDT) Magnesium 2.1 1.9 - 2.6 mg/dL LAB CHEMISTRY METHOD 09/30/2024 12:11 PM EDT [facility] Blood Venous blood specimen / Unknown Venipuncture / Unknown 09/30/2024 8:48 AM EDT 09/30/2024 8:48 AM EDT us Marcus Rodriguez MD LAB BLOOD ORDERABLES Final Result [facility] [address] [place] [address], [place] [phone] * Hemoglobin A1c (09/30/2024 8:48 AM EDT) Pathologist [facility] Hemoglobin A1C 6.2 <6.5 % LAB CHEMISTRY METHOD 09/30/2024 2:31 PM EDT [facility] Mean Bld Glu Estim. 131 mg/dL LAB CHEMISTRY METHOD 09/30/2024 2:31 PM EDT [facility] Blood Venous blood specimen / Unknown Venipuncture / Unknown 09/30/2024 8:48 AM EDT 09/30/2024 8:48 AM EDT us Marcus Rodriguez MD LAB BLOOD ORDERABLES Final Result Performing Organization Address [facility]/ZIP Co de Phone Number [facility] [address] [place] [address], [place] [phone] * (ABNORMAL) Vitamin B12 (09/30/2024 8:48 AM EDT) [facility] Vitamin B-12 1,172(H) 250 - 900 pcg/mL LAB CHEMISTRY METHOD 09/30/2024 12:39 PM EDT [facility] Blood Venous blood specimen / Unknown Venipuncture / Unknown 09/30/2024 8:48 AM EDT 09/30/2024 8:48 AM EDT us Marcus Rodriguez MD LAB BLOOD ORDERABLES Final Result [facility] [address] [place] [address], [place] [phone] * (ABNORMAL) Comprehensive metabolic panel (09/30/2024 8:48 AM EDT) Sodium 137 133 - 145 mmol/L LAB CHEMISTRY METHOD 09/30/2024 12:39 PM [facility] Potassium 4.5 3.5 - 5.5 mmol/L LAB CHEMISTRY METHOD 09/30/2024 12:39 PM [facility] Chloride 100 96 - 110 mmol/L LAB CHEMISTRY METHOD 09/30/2024 12:39 PM [facility] CO2 29 21 - 32 mmol/L LAB CHEMISTRY METHOD 09/30/2024 12:39 PM [facility] Anion Gap 8 3 - 11 LAB CHEMISTRY METHOD 09/30/2024 12:39 PM [facility] Glucose 110(H) 70 - 100 mg/dL LAB CHEMISTRY METHOD 09/30/2024 12:39 PM [facility] BUN 20 5 - 25 mg/dL LAB CHEMISTRY METHOD 09/30/2024 12:39 PM [facility] Creatinine 0.78 0.50 - 1.10 mg/dL LAB CHEMISTRY METHOD 09/30/2024 12:39 PM [facility] eGFR 78 >=60 mL/min/1. 73m2 LAB CHEMISTRY METHOD 09/30/2024 12:39 PM [facility] Comment:Calculation based on the Chronic Kidney Disease Epidemiology Collaboration (CKD-EPI) equation refit without adjustment for race. BUN/Creatinine Ratio 25.6 LAB CHEMISTRY METHOD 09/30/2024 12:39 PM [facility] Calcium 8.8 8.5 - 10.5 mg/dL LAB CHEMISTRY METHOD 09/30/2024 12:39 PM [facility] AST (SGOT) 31 10 - 42 unit/L LAB CHEMISTRY METHOD 09/30/2024 12:39 PM [facility] ALT (SGPT) 44 10 - 60 unit/L LAB CHEMISTRY METHOD 09/30/2024 12:39 PM EDT [facility] Alkaline Phosphatase 91 42 - 121 unit/L LAB CHEMISTRY METHOD 09/30/2024 12:39 PM EDT [facility] Total Protein 6.8 6.0 - 8.0 g/dL LAB CHEMISTRY METHOD 09/30/2024 12:39 PM EDT [facility] Albumin 3.8 3.2 - 5.0 g/dL LAB CHEMISTRY METHOD 09/30/2024 12:39 PM EDT [facility] Total Bilirubin 0.6 0.0 - 1.4 mg/dL LAB CHEMISTRY METHOD 09/30/2024 12:39 PM EDT [facility] Blood Venous blood specimen / Unknown Venipuncture / Unknown 09/30/2024 8:48 AM EDT 09/30/2024 8:48 AM EDT us Marcus Rodriguez MD LAB BLOOD ORDERABLES Final Result [facility] [address] [place] [address], from Last 3 [place] [id number] MEDICARE COMMERCIAL GENERIC Care Teams Manager Roofing Relationship Specialty Start Date End Date Marcus Rodriguez MD [address] [place] [id number] PCP - General 11/02/23
[2024-12-23 13:51] VITALS: BP 86/47; PULSE 66; TEMP 36.5; O2SAT 96; BMI 14.2
--- NOTE | 2024-12-23 13:51 | MHC.OFFWIV ---
Intake Vital Signs 12/23/24 13:51 Height 5 ft 6 in Weight 88 lb BMI 14.2 BP 86/47 L Blood Pressure Location Rt brachial Position Sitting Pulse 66 Pulse Source Pulse Oximeter Temp 97.7 F Temp Source Oral Pulse Oximetry (%) 96 Oxygen Delivery Method Room Air Intake Visit Reasons: ep possible celulitus Intake Note: pt presents with swelling, redness, hot to touch and spreading area to LT medial foot with inferior pain for a few days. Also c/o severe constipation/impaction- no BM x3 days Patient Tobacco Use Status: Never used Tobacco Allergies lisinopril Allergy (Severe, Verified 12/23/24 13:56) Swelling clindamycin Allergy (Intermediate, Verified 12/23/24 13:56) Hives erythromycin base (From Erythrocin) Allergy (Intermediate, Verified 12/23/24 13:56) Dizziness Penicillins Allergy (Intermediate, Verified 12/23/24 13:56) Unknown Sulfa (Sulfonamide Antibiotics) Allergy (Intermediate, Verified 12/23/24 13:56) Unknown iodine dye Allergy (Severe, Uncoded 07/22/24 14:01) Weakness cephrozil Allergy (Intermediate, Uncoded 07/22/24 14:01) Hives Do you need a note to return to daycare/school/sports/work: No HPI HPI Comments History of Present Illness Details This is a 79-year-old female with a past medical history of hypertension, hypothyroidism, hyperlipidemia, gastroesophageal reflux disease, CHF and atrial fibrillation presenting for evaluation of redness on her left foot and ankle that she first noticed on Thursday. Patient states that she has discomfort on the inside of her left foot with redness that she marked this morning upon recommendation of her visiting nurse. Patient was started on a new diuretic last week for management of her heart failure but denies taking any new medications. Additionally, patient denies having any fevers or chills. Additionally, patient states she has not had a bowel movement since Thursday. She denies having any overt abdominal pain, nausea or vomiting. Patient has been taking senna and Colace without relief of her constipation. Patient is accompanied today by her cousin. [facility] Medical History (Updated 12/23/24 @ 14:39 by Luly Little PA-C) Community acquired bacterial pneumonia Cough Acute respiratory disease Social History Patient Tobacco Use Status: Never used Tobacco Review of Systems Const All systems reviewed & are unremarkable except as noted in HPI and below Denies body aches, Denies chills, Denies fatigue and Denies fever(s) Eyes Reports no additional complaints ENT Reports no additional complaints Card Reports no additional complaints Resp Reports no additional complaints GI Denies abdominal pain, Denies belching, Reports constipation, Denies GI cramping, Denies nausea and Denies vomiting Reports no additional complaints Musc Reports no additional complaints Skin/Breast Reports change in pigmentation (left foot/ankle), Denies lesions and Denies sores Neuro Reports no additional complaints Psych Reports no additional complaints Endo Reports no additional complaints and Denies fatigue Physical Exam Vital Signs: Last Vital Signs Temp 97.7 F 12/23/24 13:51 Pulse 66 12/23/24 13:51 BP 86/47 L 12/23/24 13:51 Pulse Ox 96 12/23/24 13:51 Oxygen Delivery Method Room Air 12/23/24 13:51 BMI result Body Mass Index 14.2 Const General: cooperative, comfortable, no acute distress, well developed, alert, awake and Physically active; No acute distress, diaphoretic or ill appearing Nutritional Appearance: thin Orientation/consciousness: patient oriented x3 Limitations: no limitations GI Inspection: Yes normal to inspection and No distended Palpation (GI): Soft to palpation, nontender and no guarding Auscultation: normal bowel sounds, no high pitched sounds, no hyperactive bowel sounds, no hypoactive bowel sounds and normoactive bowel sounds Skin Other: there is a 10.5 x 5.5 cm triangular area of macular erythema that is warm and tender to touch on the medial aspect of the left ankle and medial left foot; no lesions, abrasions, lacerations or induration present Neuro General: patient oriented x3 Extrem Other: Patient ambulating well with a cane. Psych Appearance: grossly normal Mental Status: mental status grossly normal Insight: Good insight present (Psych) Judgement: Good judgement present (Psych) Assessment & Plan Assessment & Plan (1) Constipation: Comment: Given this patient is on fluid restrictions I had a new diuretic medication, patient is advised to use glycerin suppositories this evening and a Fleet enema in the morning if she does not have another bowel movement. Code(s): K59.00 - Constipation, unspecified Qualifiers: Constipation type: unspecified constipation type Qualified Code(s): K59.00 - Constipation, unspecified Plan: Glycerin suppositories and Fleet enema as discussed. (2) Cellulitis of left lower extremity: Comment: Patient is afebrile and in no acute distress. Lesion was previously marked this morning by the patient and she will continue to monitor any evolution of this left lower extremity cellulitis. Patient will be discharged home with antibiotic therapy. Code(s): L03.116 - Cellulitis of left lower limb Plan: Doxycycline 100 mg twice daily for 7 days. Tylenol as needed for discomfort. Coding Level of Care Code Est Pt Level 3 (80888) Diagnoses Constipation, unspecified constipation type K59.00 Constipation type: unspecified constipation type Cellulitis of left lower extremity L03.116 Time Spent (min) 25
== END 2024-12-23 14:52 | disposition home or self-care (01) ==
PROVIDERS: Visit Provider Physician Assistant
DX: K59.00 Constipation, unspecified (principal); L03.116 Cellulitis of left lower limb

== ENCOUNTER → 2024-12-23 13:38 | Outpatient (BNVA) | payer MEDICARE, OTHER, SELFPAY | PROVIDERS: Visit Provider Physician Assistant | DX: K59.00 Constipation, unspecified (principal); L03.116 Cellulitis of left lower limb | CPT/HCPCS: 99212 ==